=== PATIENT | female | born 1980 | race Caucasian/White ===

== ENCOUNTER 2018-03-25 08:48 | Day surgery (SDC) | payer BC, OTHER ==
[~2018-03-25 08:48] MED LIST: LR 1,000 ML IV
[2018-03-25 09:12] LABS: HEMATOCRIT 37.6 % (36.0-47.0); HEMOGLOBIN 11.8 g/dl (12.0-15.5); MEAN CORPUSCULAR HEMOGLOBIN 25.4 pg (27.0-33.0); MEAN CORPUSCULAR HGB CONC 31.4 g/dl (32.0-36.5); PLATELET COUNT, AUTOMATED 395 10^3/uL (150-450); RED BLOOD COUNT 4.64 10^6/uL (4.00-5.40); RED CELL DISTRIBUTION WIDTH 15.5 % (11.5-14.5); WHITE BLOOD COUNT 8.2 10^3/uL (4.0-10.0)
[2018-03-25] MEDS ORDERED: ROCURONIUM BROMIDE 50 MG/5 ML VIAL As Ordered (09:12)
[2018-03-25] MEDS ORDERED: MIDAZOLAM INJ 2 MG/2 ML VIAL (J2250) As Ordered (09:12)
[2018-03-25] MEDS ORDERED: fentaNYL 250 MCG/5 ML INJECTION (J3010) As Ordered (09:12)
[2018-03-25] MEDS ORDERED: PROPOFOL 200 MG/20 ML VIAL As Ordered (09:12)
[2018-03-25] MEDS ORDERED: LIDOCAINE 2% INJ 100 MG/5 ML SDV (FOR ANES.) As Ordered (09:12)
[2018-03-25 09:46] LABS: CONTROL LINE UCG INT CTR LINE PRESENT; URINE PREG TEST NEGATIVE (NEGATIVE)
[2018-03-25] MEDS: BUPIVACAINE HCL 0.25% 10 ML VIAL As Ordered (11:20)
[2018-03-25] MEDS ORDERED: fentaNYL 100 MCG/2 ML INJECTION (J3010) As Ordered (11:33)
[2018-03-25] MEDS ORDERED: HYDROmorphone HCL 2 MG/ML 1ML VIAL (J1170) As Ordered (11:33)
[2018-03-25] MEDS ORDERED: NEOSTIGMINE 10 MG/10 ML VIAL (J2710) As Ordered (11:42)
[2018-03-25] MEDS ORDERED: GLYCOPYRROLATE INJ 0.2 MG/ML 2 ML VIAL As Ordered (11:42)
[2018-03-25] MEDS ORDERED: ONDANSETRON 4MG/2ML VIAL (J2405) As Ordered (11:42)
[2018-03-25] MEDS ORDERED: dexameTHASONE 4 MG/ML 1ML VIAL (J1100) As Ordered ×2 (11:43)
[2018-03-25] MEDS ORDERED: KETOROLAC 60 MG/2 ML VIAL (J1885) As Ordered (11:43)
[2018-03-25] MEDS ORDERED: METOCLOPRAMIDE INJ 10MG/2ML VIAL (J2765) As Ordered (11:43)
[2018-03-25] MEDS: METHYLENE BLUE 0.5% (5MG/ML) 10 ML AMP (PROVAYBLUE)(Q9968 PER 1MG) As Ordered (11:47)
[2018-03-25] MEDS ORDERED: ONDANSETRON 4MG/2ML VIAL (J2405) IV ×2 (13:00)
[2018-03-25] MEDS ORDERED: PERCOCET 5MG/325MG TAB PO ×2 (13:00)
[2018-03-25] MEDS ORDERED: MORPHINE 10 MG/ML 1ML VIAL (J2270) IV (13:00)
[2018-03-25] MEDS ORDERED: fentaNYL 100 MCG/2 ML INJECTION (J3010) IV (13:00)
[2018-03-25] MEDS ORDERED: MORPHINE 4 MG/ML 1ML VIAL/SYRINGE (J2270) IV (13:00)
[2018-03-25] MEDS ORDERED: LR 1,000 ML IV (13:00)
[2018-03-25] MEDS: PERCOCET 5MG/325MG TAB PO (13:06)
[2018-03-25] MEDS: LR 1,000 ML IV (14:07)
[2018-03-25] MEDS: SENNA 8.6 MG TAB (SENOKOT) PO (17:25)
== END 2018-03-25 18:00 | disposition home or self-care (01) ==
LOC: M SDC 08:48 → M PED 13:20 → M SDC 18:00
DX: N92.0 Excessive and frequent menstruation with regular cycle (principal); G43.909 Migraine, unspecified, not intractable, without status migrainosus; F41.9 Anxiety disorder, unspecified; D64.9 Anemia, unspecified; R01.1 Cardiac murmur, unspecified; E16.2 Hypoglycemia, unspecified; F32.9 Major depressive disorder, single episode, unspecified; Z91.09 Other allergy status, other than to drugs and biological substances; Z79.899 Other long term (current) drug therapy; Z72.0 Tobacco use
CPT/HCPCS: 58570

== ENCOUNTER 2018-03-26 03:18 | Observation (INO) | payer BC ==
[2018-03-26 04:12] LABS: BASO % 0.1 % (0.0-1.0); HEMATOCRIT 30.2 % (36.0-47.0); IMMATURE GRANULOCYTE % 0.4 % (0-3.0); LYMPH # 1.4 10^3/uL (1.5-4.5); LYMPH % 8.5 % (24.0-44.0); MEAN CORPUSCULAR HEMOGLOBIN 25.7 pg (27.0-33.0); MEAN CORPUSCULAR HGB CONC 32.5 g/dl (32.0-36.5); MEAN CORPUSCULAR VOLUME 79.1 fl (80.0-96.0); MONO # 1.3 10^3/uL (0.0-0.8); MONO % 7.9 % (0.0-5.0); NEUTROPHILS # 13.5 10^3/uL (1.8-7.7); NEUTROPHILS % 83.1 % (36.0-66.0); PLATELET COUNT, AUTOMATED 358 10^3/uL (150-450); RED BLOOD COUNT 3.82 10^6/uL (4.00-5.40); RED CELL DISTRIBUTION WIDTH 15.2 % (11.5-14.5); WHITE BLOOD COUNT 16.3 10^3/uL (4.0-10.0)
[2018-03-26] MEDS: diphenhydrAMINE INJ 50MG/ML VIAL (J1200) IV (04:22)
[2018-03-26] MEDS: HALOPERIDOL 5 MG/ML VIAL (J1630) IV (04:22)
[2018-03-26] MEDS: MORPHINE 2 MG/ML 1ML SYRINGE (J2270) IV (04:23)
[2018-03-26 04:27] LABS: HEMOGLOBIN 9.8 g/dl (12.0-15.5)
[2018-03-26 04:44] LABS: ALBUMIN/GLOBULIN RATIO 1.29 (1.00-1.93); ALKALINE PHOSPHATASE 54 U/L (45-117); ALT/SGPT 16 U/L (12-78); ANION GAP 11 MEQ/L (8-16); AST/SGOT 12 U/L (7-37); BILIRUBIN,DIRECT 0.1 MG/DL (0.0-0.2); BILIRUBIN,TOTAL 0.4 MG/DL (0.2-1.0); BLOOD UREA NITROGEN 11 MG/DL (7-18); CALCIUM LEVEL 8.7 MG/DL (8.5-10.1); CARBON DIOXIDE LEVEL 25 MEQ/L (21-32); CHLORIDE LEVEL 99 MEQ/L (98-107); CREATININE FOR GFR 0.52 MG/DL (0.55-1.30); GLOMERULAR FILTRATION RATE > 60.0 (>60); GLUCOSE, FASTING 116 MG/DL (70-100); LIPASE 79 U/L (73-393); SODIUM LEVEL 135 MEQ/L (136-145); TOTAL PROTEIN 7.1 GM/DL (6.4-8.2)
[2018-03-26] MEDS ORDERED: ISOVUE-370 76% 100ML VIAL (Q9967) As Ordered (04:54)
[2018-03-26] MEDS: NS 1,000 ML IV (05:12)
[2018-03-26] MEDS: LR 1,000 ML IV ×2 (09:30→16:59)
[2018-03-26] MEDS ORDERED: PERCOCET 5MG/325MG TAB PO (09:30)
[2018-03-26] MEDS ORDERED: ONDANSETRON 4MG/2ML VIAL (J2405) IV (09:30)
[2018-03-26] MEDS: IBUPROFEN 800 MG TAB PO (15:08)
== END 2018-03-26 19:00 | disposition home or self-care (01) ==
LOC: M ED 03:18 → M ED INP 07:00 → M PED 08:57
DX: R62.7 Adult failure to thrive (principal); R11.2 Nausea with vomiting, unspecified; R10.30 Lower abdominal pain, unspecified; Z48.816 Encounter for surgical aftercare following surgery on the genitourinary system
CPT/HCPCS: J1200

== ENCOUNTER → 2019-08-16 | Outpatient (REF) | payer BC ==
[~2019-08-16] MED LIST changes: +BUTA1CAP; +D3-5CAP; +FIOR1CAP PO; +HYDR-3363; +HYDR-3363 PO; +IBUP1TAB7 PO; +INDO-16; +INDO-16 PO; -LR 1,000 ML IV; +MULTCHW14 PO; +OXYC1TAB23 PO; +PARO15TA; +PARO30TA PO; +PERC5TAB12 PO; +PROM12.56 PO; +VITA50005 PO; +WOMECAP2 PO
[2019-08-16 16:19] LABS: BASO # 0.1 10^3/uL (0.0-0.2); BASO % 1.1 % (0.0-1.0); EOS # 0.2 10^3/uL (0.0-0.5); EOS % 2.9 % (0.0-3.0); HEMATOCRIT 39.3 % (36.0-47.0); HEMOGLOBIN 12.9 g/dl (12.0-15.5); LYMPH # 2.9 10^3/uL (1.5-5.0); LYMPH % 34.6 % (24.0-44.0); MEAN CORPUSCULAR HEMOGLOBIN 28.2 pg (27.0-33.0); MEAN CORPUSCULAR HGB CONC 32.8 g/dl (32.0-36.5); MEAN CORPUSCULAR VOLUME 85.8 fl (80.0-96.0); MONO # 0.7 10^3/uL (0.0-0.8); MONO % 8.2 % (0.0-5.0); NEUTROPHILS # 4.4 10^3/uL (1.5-8.5); PLATELET COUNT, AUTOMATED 319 10^3/uL (150-450); RED BLOOD COUNT 4.58 10^6/uL (4.00-5.40); WHITE BLOOD COUNT 8.3 10^3/uL (4.0-10.0)
== END ==
LOC: M LABDRWAD 15:56
PROVIDERS: ATTEND Physician Assistant
DX: K13.79 Other lesions of oral mucosa (principal); R50.9 Fever, unspecified

== ENCOUNTER → 2019-12-03 | Outpatient (CLI) | payer BC ==
[~2019-12-03] MED LIST changes: +ISOVUE-370 76% 100ML VIAL As Ordered ONE; -PARO15TA; -PARO30TA PO; +PARO30TA4; +PARO30TA65 PO
--- NOTE | 2019-12-03 14:18 | REPVR ---
PROCEDURE INFORMATION: Exam: CT Neck With Contrast Exam date and time: 12/03/2019 1:36 PM Age: 39 years old Clinical indication: Other: Hypertrophy of tonsils TECHNIQUE: Imaging protocol: Computed tomography images of the neck with intravenous contrast. Radiation optimization: All CT scans at this facility use at least one of these dose optimization techniques: automated exposure control; mA and/or kV adjustment per patient size (includes targeted exams where dose is matched to clinical indication); or iterative reconstruction. Contrast material: Isovue 370; Contrast volume: 75 ml; Contrast route: IV; COMPARISON: No relevant prior studies available. FINDINGS: Nasopharynx: Unremarkable. Dental: Diminutive right maxillary 3rd molar. Unerupted right mandibular 3rd molar. Impacted left mandibular 3rd molar. Oropharynx: Mild bilateral palatine tonsillar hypertrophy. Gas is incidentally present within bilateral palatine tonsillar crypts (series 202, images 36 and 34; series 201, image 28). No focal fluid collection. Hypopharynx: Unremarkable. Larynx: Unremarkable. Normal epiglottis. Retropharyngeal space: Unremarkable. Submandibular/Parotid glands: Normal. Glands are normal in size. Thyroid: Normal. No enlarged or calcified nodules. Lymph nodes: Unremarkable. No lymphadenopathy. Trachea: Visualized trachea is unremarkable. Lungs: Unremarkable as visualized. Bones/joints: Unremarkable. No acute fracture. Soft tissues: Unremarkable. No significant soft tissue swelling. IMPRESSION: Mild bilateral palatine tonsillar hypertrophy Electronically signed by: Thien Scott On 12/03/2019 14:17:53 PM
== END ==
LOC: M RAD 13:30
PROVIDERS: ATTEND Specialist
DX: J35.1 Hypertrophy of tonsils (principal)
CPT/HCPCS: 70491; Q9967

== ENCOUNTER → 2020-11-17 | Outpatient (REF) | payer BC ==
[~2020-11-17] MED LIST changes: -ISOVUE-370 76% 100ML VIAL As Ordered ONE
[2020-11-17 13:11] LABS: BASO # 0.1 10^3/uL (0.0-0.2); BASO % 1.5 % (0.0-1.0); EOS # 0.3 10^3/uL (0.0-0.5); HEMATOCRIT 39.7 % (36.0-47.0); HEMOGLOBIN 12.9 g/dl (12.0-15.5); LYMPH # 2.4 10^3/uL (1.5-5.0); MEAN CORPUSCULAR HEMOGLOBIN 28.4 pg (27.0-33.0); MEAN CORPUSCULAR HGB CONC 32.5 g/dl (32.0-36.5); MEAN CORPUSCULAR VOLUME 87.4 fl (80.0-96.0); MONO # 0.5 10^3/uL (0.0-0.8); MONO % 7.8 % (2.0-8.0); NEUTROPHILS # 2.8 10^3/uL (1.5-8.5); NEUTROPHILS % 46.5 % (36.0-66.0); PLATELET COUNT, AUTOMATED 284 10^3/uL (150-450); RED BLOOD COUNT 4.54 10^6/uL (4.00-5.40); WHITE BLOOD COUNT 6.1 10^3/uL (4.0-10.0)
[2020-11-17 14:03] LABS: ALBUMIN 4.3 GM/DL (3.2-5.2); ALT/SGPT 16 U/L (12-78); BILIRUBIN,TOTAL 0.5 MG/DL (0.2-1.0); BLOOD UREA NITROGEN 9 MG/DL (7-18); CALCIUM LEVEL 9.1 MG/DL (8.5-10.1); CARBON DIOXIDE LEVEL 28 MEQ/L (21-32); CHLORIDE LEVEL 104 MEQ/L (98-107); CREATININE FOR GFR 0.56 MG/DL (0.55-1.30); GLOMERULAR FILTRATION RATE > 60.0 (>60); GLUCOSE, FASTING 76 MG/DL (70-100); IRON (FE) 91 UG/DL (50-170); POTASSIUM SERUM 4.2 MEQ/L (3.5-5.1); SODIUM LEVEL 139 MEQ/L (136-145); THYROID STIMULATING HORMONE 0.695 uIU/ML (0.358-3.740); TOTAL 25(OH) VITAMIN D 22.5 NG/ML (30.0-100.0); TOTAL PROTEIN 7.7 GM/DL (6.4-8.2); VITAMIN B12 LEVEL 561 PG/ML (247-911)
== END ==
LOC: M LABDRWAD 12:33
PROVIDERS: ATTEND Family Medicine
DX: G43.101 Migraine with aura, not intractable, with status migrainosus (principal); E55.9 Vitamin D deficiency, unspecified; D50.9 Iron deficiency anemia, unspecified; F41.1 Generalized anxiety disorder